=== PATIENT | male | born 1975 | race Caucasian/White ===

== ENCOUNTER 2016-06-13 14:20 | Emergency (ER) | payer OTHER ==
[~2016-06-13] VITALS: Ht 172.7 cm; Wt 68.2 kg
[2016-06-13 14:31] VITALS: BP 114/74; PULSE 92; RESP 16; O2SAT 99
[2016-06-13 15:41] VITALS: BP 117/65; PULSE 78; RESP 16; O2SAT 99
--- NOTE | 2016-06-13 15:51 | ED.REPORT ---
HPI-Abd Pain M 40 and Over Date of Service Jun 13, 2016 ED Provider: Dr. Suresh 41 y/o male with no pertinent hx presents to the ED complaining of abdominal pain which he has been experiencing mildly intermittently for years, worse over the past 1 month. Pt also complains of diarrhea and increased urinary frequency but denies dysuria, flank pain, nausea and vomiting. He went to urgent care on 05/31/16 for abdominal pain, where he was diagnosed with possible Crohn's disease after a CT scan showed "swelling and thickening of the colon" and prescribed Vicodin, Dicyclomine, and Metronidazole, all which have not provided relief. At that time he was referred to to have an appointment with GI today. The pt ran out of his Vicodin 5 days ago and went back to Urgent Care who gave him 9 more pills of Vicodin to make it to his appointment today. At his GI appointment today he was scheduled for an endoscopy and colonoscopy next week. The GI doctor refused to prescribe pain medication and he was advised to follow up with his PCP for further evaluation. The pt does not have a PCP. Nursing Notes Stated Complaint: STOMACH PAIN Chief Complaint: Male Abdominal Pain Nursing Notes Reviewed: Yes Allergies: Coded Allergies: No Known Allergies (Unverified , 06/13/16) Scheduled Metronidazole (Flagyl) 500 Mg Tablet 500 MG PO Q8H Scheduled PRN Dicyclomine (Dicyclomine) 20 Mg Tablet 20 MG PO QID PRN PRN For GI Cramps Docusate Sodium (Docusate Sodium) 250 Mg Capsule 250 MG PO BID PRN PRN For Constipation Hydrocodone-Acetaminophen 5-300 mg (Hydrocodone-Acetaminophen 5-300 mg) 1 Each Tablet 1 TABLET PO Q4H PRN PRN For Pain Hydrocodone-Acetaminophen 5-325 mg (Hydrocodone-Acetaminophen 5-325 mg) 1 Each Tablet 1 TABLET PO Q6H PRN PRN For Pain General Time Seen by MD: 15:50 Chief Complaint Abdominal pain Hx Obtained From: Patient Arrived By: Walk-in Sudden in Onset?: No Onset Occurred: More than a week ago... (4 weeks) Symptom Duration: Since onset Progression since Onset: Constant Location: : Diffuse Quality: Painful Radiation: : Does not radiate Severity: Current: Moderate Severity: Maximum: Moderate Recent Healthcare: Recent doctor visit Similar Sx Previous: No Past Medical History Past Medical History none reported Past Surgical History left knee surgery Smoking History Light Tobacco Smoker Social History Alcohol Use: "Social" Other Social History: Good social support, Ambulatory Status Independent Review of Systems Constitutional: Reports: Malaise, Denies: Chills, Fever Respiratory: Denies: Non-productive cough, Shortness of breath Cardiovascular: Denies: Chest pain, Dyspnea on exertion GI: Reports: Abdominal pain, Diarrhea, Denies: Bloody/tarry stool, Nausea, Vomiting Male: Reports Urinary frequency, Denies Dysuria, Denies Flank pain Complete sys rev & neg: except as marked. Physical Exam Initial Vital Signs Vital Signs (First) Date Time Temp Pulse Resp B/P Pulse Ox O2 Delivery O2 Flow Rate FiO2 06/13/16 14:31 36.0 92 16 114/74 99 Room Air Initial VS: Reviewed, Vital signs normal Head / Eyes: Atraumatic, Normocephalic, PERRL ENT: Mucous membranes moist, Conjunctiva normal, No scleral icterus Neck: Supple, Non-tender, Full range of motion Extremities: Vascular intact, Neuro intact, No swelling, No tenderness Skin: Warm, Dry, No cyanosis Neurologic: Alert, Oriented, Nonfocal Psychiatric: Mood/affect normal, Behavior normal, Normal thought content General/Constitutional: Awake, Alert, No acute distress, Cooperative, Not toxic appearing Respiratory / Chest: Atraumatic, Breath sounds NL, Breath sounds = bilat, No respiratory distress, No rales, No rhonchi, No wheezing, No retractions Cardiovascular: Heart rate NL, Regular rhythm, Heart sounds NL, No murmurs Abdomen: Atraumatic, Soft, No guarding, No rebound Tenderness/Guarding/Rebound: Positive: Tender suprapubic (Mild) Back: Atraumatic, Full range of motion, No CVA tenderness Interpretation & Diagnostics Lab Results Interpretation Result Diagram: 06/13/16 1550 06/13/16 1550 Test 06/13/16 15:50 06/13/16 16:00 White Blood Count 13.9th/mm3 (3.8-10.1) Red Blood Count 4.51mil/mm3 (4.40-5.80) Hemoglobin 13.2g/dL (13.8-17.2) Hematocrit 40.7% (41.0-50.0) Mean Corpuscular Volume 90.2fL (81-100) Mean Corpuscular Hemoglobin 29.3pg (27.0-35.0) Mean Corpuscular Hemoglobin Concent 32.4% (32.0-37.0) Red Cell Distribution Width 13.0% (12.3-15.4) Platelet Count 403bil/L (150-400) Neutrophils (%) (Auto) 78.7% (40-74) Lymphocytes (%) (Auto) 12.7% (14-46) Monocytes (%) (Auto) 7.8% (4-12) Eosinophils (%) (Auto) 0.4% (0-5) Basophils (%) (Auto) 0.3% (0-3) Sodium Level 138mEq/L (134-144) Potassium Level 4.1mEq/L (3.5-5.2) Chloride Level 98mEq/L (97-108) Carbon Dioxide Level 25mmol/L (18-29) Blood Urea Nitrogen 12mg/dL (6-24) Creatinine 0.65mg/dL (0.76-1.27) Estimat Glomerular Filtration Rate 144mL/min (>59) Glucose Level 111mg/dL (60-99) Calcium Level 9.3mg/dL (8.5-10.1) Magnesium Level 2.2mg/dL (1.6-2.6) Total Bilirubin 0.5mg/dL (0.0-1.2) Aspartate Amino Transf (AST/SGOT) 25U/L (0-50) Alanine Aminotransferase (ALT/SGPT) 21U/L (0-44) Alkaline Phosphatase 74U/L (25-150) Total Protein 7.3g/dL (6.4-8.4) Albumin 4.0g/dL (3.4-5.0) Lipase 32U/L (13-60) Hold [place] Top Tube Received (Received) Hold Urine Received (Received) Re-Eval/Medical Decision Med Decision/Clinical Course 41-year-old male with chronic abdominal pain presenting with his typical chronic abdominal pain. He reports he has had pain for years. He returned several weeks ago. He reports he had a CT scan at outside facility that showed possible Crohn's disease and he was referred to a GI doctor who saw him today and is planning for endoscopy next week. He reports the doctor did not give him any pain medications and he is out of his narcotics and is requesting refill on his narcotics. He reports some diarrhea last week which is resolved. Does have recent antibiotic use. Denies any nausea vomiting. He has mild suprapubic tenderness no other tenderness and no rebound or guarding. No peritoneal signs. Labs with mild leukocytosis which she reports is chronic. His urine is negative for infection. I believe he is stable for discharge home with outpatient follow-up. I gave him a local primary doctor to call for appointment later this week. Patient agreeable with plan. Time of Eval: 16:54 Re-Evaluation/Progress Note: Pt rechecked. Informed pt of plan for treatment. Pt understands and agrees with plan for treatment. F/U instructions and RTER warnings given. All questions addressed. Counseled Regarding: Diagnosis, Lab results, Need for follow-up, When/why to return to ED Discharge & Departure Primary Impression: Generalized abdominal pain Disposition: Home Vital Signs - All Vital Signs Date Time Temp Pulse Resp B/P Pulse Ox O2 Delivery O2 Flow Rate FiO2 06/13/16 17:21 37.2 84 14 120/67 97 Room Air 06/13/16 17:13 37.2 84 14 120/67 97 Room Air 06/13/16 15:41 37.4 78 16 117/65 99 Room Air 06/13/16 14:31 36.0 92 16 114/74 99 Room Air )( All Prior VS Reviewed: Yes Condition: Stable Patient Instructions: Acute Abdominal Pain (ED) Additional Instructions: Your lab results and urinalysis are normal. Take Vicodin for pain as prescribed. You may experience constipation with Vicodin. So, take the Docusate as prescribed. Keep your appointment with the [facility] for endoscopy. Follow up with your primary care provider for further evaluation. Return if any new or worsening abdominal pain, fevers, nausea, vomiting, back pain, pain with urination, other new or worsening symptoms. Return to the emergency department for worsening abdominal pain, fever, chills, severe back pain, persistent vomiting, bloody stools, or for other concerning symptoms. Referrals: [facility] Scribe Attestation Portions of this note were transcribed by Shannan Macdonald and Ángel Michel. I, , personally performed the history, physical exam and medical decision-making;I reviewed and confirmed the accuracy of the information in the transcribed note. Signed by Shannan Macdonald and Trisha Singletary. 06/13/16 1640 copies to: [facility] Edinson Suresh MD Jun 13, 2016 15:51 Shannan Macdonald Jun 13, 2016 16:25 ÁNGEL MICHEL Jun 13, 2016 16:51
[2016-06-13 16:13] LABS: BASOPHILS % (AUTO) 0.3 % (0-3); EOSINOPHILS % (AUTO) 0.4 % (0-5); MONOCYTES % (AUTO) 7.8 % (4-12); Mean Corpuscular Hemoglobin 29.3 pg (27.0-35.0); Mean Corpuscular Volume 90.2 fL (81-100); NEUTROPHILS % (AUTO) 78.7 % (40-74); Platelet Count 403 bil/L (150-400)
[2016-06-13] MEDS ORDERED: HYDROcodone-APAP 10-325 mg PO ONE (16:20)
[2016-06-13 16:29] LABS: Magnesium 2.2 mg/dL (1.6-2.6)
[2016-06-13] MEDS ORDERED: HYDR-4003 PO (16:29)
[2016-06-13] MEDS ORDERED: DICY20TA10 PO (16:30)
[2016-06-13] MEDS ORDERED: METR500T PO (16:30)
[2016-06-13] MEDS ORDERED: DOCU250C2 PO (16:51)
[2016-06-13] MEDS ORDERED: HYDR-3090 PO (16:51)
[2016-06-13 17:13] VITALS: BP 120/67; PULSE 84; RESP 14; O2SAT 97
[2016-06-13 17:21] VITALS: BP 120/67; PULSE 84; RESP 14; O2SAT 97
== END 2016-06-13 17:21 | disposition home or self-care (01) ==
LOC: SED 14:20
DX: R10.84 Generalized abdominal pain (principal); F17.200 Nicotine dependence, unspecified, uncomplicated

== ENCOUNTER 2016-06-20 11:10 | Day surgery (SDC) | payer OTHER ==
[~2016-06-20] VITALS: Ht 172.7 cm; Wt 70.0 kg
[~2016-06-20 11:10] MED LIST: HYDR-4003 PO; Sodium Chloride LOK Flush 10 mL Syringe IV PRN; fentaNYL-PF 50 mCg/mL 2 mL Inj IVPUSH PRN
[2016-06-20 12:02] VITALS: BP 117/66; PULSE 69; RESP 14; O2SAT 99
[2016-06-20] MEDS: 0.9% Sodium Chloride 1,000 ML IV SCH ×2 (12:51→13:53)
[2016-06-20 13:22] VITALS: BP 98/53; PULSE 64; RESP 16; O2SAT 100
[2016-06-20 13:38] VITALS: BP 89/62; PULSE 63; RESP 16; O2SAT 100
[2016-06-20 13:39] VITALS: BP 114/65; PULSE 66; RESP 6; O2SAT 95
--- NOTE | 2016-06-20 14:09 | ENDO ---
[address] [address] ENDOSCOPY PROCEDURE PATIENT: ALESSIA ANGEL : 1975 MR#: [id number] ADMIT: 06/20/2016 JOB ID: [id number] DATE: 06/20/2016 PROCEDURE: Esophagogastroduodenoscopy. INDICATION: Abdominal pain and diarrhea. The patient's ASA classification is 2. Mallampati score is 2. MEDICATIONS: 1. Versed 10 mg. 2. Fentanyl 200 mcg. INSTRUMENT USED: GIF H 180 J. PROCEDURE DETAILS: After informed consent was obtained, the patient was brought into the GI suite, where he was placed on oxygen via nasal cannula and monitored with continuous pulse oximeter, telemetry and blood pressure monitoring. A time-out was performed. Then, he was placed in the left lateral decubitus position and medications were administered for sedation. A bite block was placed. The standard EGD scope was then inserted through the bite block and advanced under direct visualization to the second portion of duodenum without difficulty. FINDINGS: 1. Normal appearing duodenal bulb, first and second portion. Multiple random biopsies were obtained. 2. Normal-appearing pylorus, antrum and gastric body. 3. Retroflexed views the gastric body revealed a normal-appearing cardia and fundus. 4. Multiple random biopsies were obtained throughout the antrum and body of the stomach. 5. The GE junction was at approximately 44 cm. It was slightly irregular. There were two short tongues of salmon-colored mucosa arising from the GE junction suggestive of Mckinney's. Multiple biopsies were obtained. The remainder of the esophagus was otherwise unremarkable. IMPRESSION: 1. Slightly irregular gastroesophageal junction, otherwise normal examination to second portion of the duodenum. RECOMMENDATIONS: 1. Await biopsy results. 2. Proceed to colonoscopy. PROCEDURE PERFORMED: Colonoscopy. INDICATION: Diarrhea and abdominal pain. Please see above for ASA classification, Mallampati score and medications. INSTRUMENT USED: PCF H 180 AL. PREPARATION QUALITY: Was good. PROCEDURE DETAILS: After completion of the EGD examination, the patient was turned and then a digital rectal examination was performed, which was unremarkable. The colonoscope was then inserted into the rectum and advanced under direct visualization to the cecum. From the cecum, the terminal ileum was intubated. Once the terminal ileum was reached, the colonoscope was then withdrawn back into the rectum and mucosa and lumen were examined. In the rectum, retroflexion was performed. Following retroflexion, remaining air in the rectum was suctioned, and the procedure was completed. FINDINGS: 1. In the terminal ileum, there was erythema with mild edema suggestive of ileitis. Multiple random biopsies were obtained. The ileocecal valve was slightly stenotic and was friable. 2. The remainder of the examination from rectum to cecum appeared normal. Biopsies were obtained in a segmental fashion throughout the entire colon and rectum. IMPRESSION: Ileitis with a stenotic friable ileocecal valve, otherwise normal examination from rectum to cecum. IMPRESSION: 1. Ileitis, suspect Crohn disease. 2. Await biopsy results. 3. Followup in GI clinic. COMPLICATIONS: None. ESTIMATED BLOOD LOSS: Less than 5 mL.
--- NOTE | 2016-06-21 10:58 | PATH ---
SURGICAL PATHOLOGY Attending Physician:Abdullahi Perez CASE STATUS: Signed Out PATIENT NAME: ALESSIA ANGEL PID: [id number] : 1975 DATE COLLECTED:06/20/2016 21:22 SPECIMEN: 1: Duodenum, Biopsy 2: Gastric, Biopsy 3: Gastric, Biopsy 4: Ileum, Biopsy 5: Colon, Biopsy 6: Colon, Biopsy 7: Colon, Biopsy 8: Rectum, Biopsy CLINICAL HISTORY: 1). DUODENAL BIOPSY 2). RANDOM GASTRIC BIOPSY 3). DISTAL ESOPHAGUS BIOPSY 4). TEMINAL ILEUM BIOPSY 5). ASCENDING 6). TRANSVERSE 7). DESCENDING 8). RECTAL FINAL DIAGNOSIS: 1.DUODENAL BIOPSY: CHANGES OF CHRONIC DUODENITIS WITH FOCI OF MUCOSAL SCARRING. Negative for evidence of celiac disease. Negative for dysplasia and malignancy. 2.RANDOM GASTRIC BIOPSIES: MILD TO MODERATE CHRONIC GASTRITIS INVOLVING FUNDIC AND ANTRAL MUCOSA. Immunohistochemistry for Helicobacter pending, to be reported by addendum. Negative for intestinal metaplasia. Negative for dysplasia and malignancy. 3.DISTAL ESOPHAGUS BIOPSY: SQUAMOUS MUCOSA, GASTRIC CARDIA-TYPE MUCOSA, AND OXYNTIC-TYPE MUCOSA NEGATIVE FOR SPECIALIZED METAPLASIA OF DEGROOT' S-TYPE ESOPHAGUS. Negative for dysplasia and malignancy. Negative for squamous intraepithelial eosinophils. 4.TERMINAL ILEUM BIOPSY: SUPERFICIAL FRAGMENTS OF NORMAL-APPEARING SMALL BOWEL MUCOSA AND COLON MUCOSA. Negative for granulomas. Negative for significant inflammation, dysplasia and malignancy. 5. 8.RANDOM BIOPSIES FROM ASCENDING COLON, TRANSVERSE COLON, DESCENDING COLON, AND RECTUM: FRAGMENTS OF NORMAL-APPEARING COLON MUCOSA PRESENT IN ALL FOUR SPECIMENS. Negative for significant architectural distortion. Negative for significant inflammation, dysplasia and malignancy. ICD10 CODE K29.70 GROSS DESCRIPTION: Received eight formalin-filled containers, each labeled with the patient' s name: 1. In a container labeled "duodenal", the specimen consists of five 0.1-0.4 cm portions of tissue, entirely submitted in cassette 1A. 2. In a container labeled "gastric", the specimen consists of consists of three portions of tissue which range in size from 0.1 cm to 0.4 cm. Entirely submitted in cassette 2A. 3. In a container labeled "DE", the specimen consists of four less than 0.1 cm to 0.3 cm portions of tissue, entirely submitted in cassette 3A. 4. In a container labeled "TI", the specimen consists of two 0.1-0.2 cm portions of tissue, entirely submitted in cassette 4A. 5. In a container labeled "ascending", the specimen consists of two 0.1-0.3 cm portions of tissue, entirely submitted in cassette 5A. 6. In a container labeled "transv", the specimen consists of two 0.1-0.3 cm portions of tissue, entirely submitted in cassette 6A 7. In a container labeled "descend", the specimen consists of three 0.1-0.3 cm portions of tissue, entirely submitted in cassette 7A. 8. In a container labeled "rectal", the specimen consists of two 0.1-0.2 cm portions of tissue, entirely submitted in cassette 8A. (DC:[id number]) MICRO DESCRIPTION: See diagnosis. ICD-9 CODES: CPT CODES: 1: 39808 2: 66948, 89968 3: 22891 4: 48139 5: 57211 6: 31756 7: 05111 8: 03663 PROCEDURE/ADDENDA: Immunohistochemistry SPI Interpretation {Not Entered} Results-Comments Immunohistochemistry Results: 2.RANDOM GASTRIC BIOPSIES: NEGATIVE FOR HELICOBACTER PYLORI BY IMMUNOHISTOCHEMISTRY. This test was developed and its performance characteristics determined by [employer]. It has not been cleared or approved by the [place]. [place]. Food and Drug Administration. The FDA has determined that such clearance or approval is not necessary. This test is used for clinical purposes. It should not be regarded as investigational or for research. Electronically Signed Out Arsenio Miguel MD Electronically Signed Out Arsenio Miguel MD [facility] [address] [place] [address] Technical component performed at [facility], [facility] [address], [address]
== END 2016-06-20 23:59 | disposition home or self-care (01) ==
LOC: END 11:10 → EDUNIT# 12:00 → END 23:59
PROVIDERS: ATTEND Internal Medicine Gastroenterology
DX: K29.80 Duodenitis without bleeding (principal); K29.50 Unspecified chronic gastritis without bleeding; R10.33 Periumbilical pain; R93.8 Abnormal findings on diagnostic imaging of other specified body structures; R10.2 Pelvic and perineal pain; R19.7 Diarrhea, unspecified; F17.290 Nicotine dependence, other tobacco product, uncomplicated
CPT/HCPCS: 43239; 45380; 99153; G0500; J2250; J3010; J7030